=== PATIENT | male | born 1990 ===

== ENCOUNTER 2016-07-01 14:11 | Emergency (ER) | payer BC, MEDICAID ==
--- NOTE | 2016-07-01 14:51 | UC ---
Hand/Wrist HPI - HPI Summary HPI Summary: The patient comes in today for: 1. Left middle, ring, and little finger. Onset: Yesterday. Palliative/provocative: Moving and pressure on the affected fingers makes it worse. Quality: Ache at rest, and sharp with movement. Region: Left 3rd, 4th and 5th fingers. Severity:6/10 Time: Constant. Associated symptoms: Event: He was handling a single cable which branches out to four cables dropping a palate from the second story to the first. The four cables started to wind and twist around each other with the palate spinning. This started to pinch the above fingers. He states that he was able to remove this affected fingers from this pinching event Medications: Excedrin "two every four hours" taking 4 doses in the past day. Cold compresses. * - History Of Current Complaint Chief Complaint: UCUpperExtremity Stated Complaint: LEFT HAND PAIN Time Seen by Provider: 07/01/16 14:43 Hx Obtained From: Patient - Allergies/Home Medications Allergies/Adverse Reactions: Allergies Allergy/AdvReac Type Severity Reaction Status Date / Time Amoxicillin Allergy Rash Verified 07/01/16 14:42 Sulfa Antibiotics Allergy Rash Verified 07/01/16 14:42 avoids opiates as of 07/03/16 Allergy Unknown Uncoded 07/01/16 14:42 Reaction Details PMH/Surg Hx/FS Hx/Imm Hx Previously Healthy: Yes Endocrine History Of: Denies: Diabetes, Thyroid Disease, Hyperthyroidism, Hypothyroidism, Dyslipidemia Cardiovascular History Of: Reports: Cardiac Disorders - murmur Denies: Hypertension, Pacemaker/ICD, Myocardial Infarction, Congestive Heart Failure, Atrial Fibrillation, Deep Vein Thrombosis, Bleeding Disorders Respiratory History Of: Denies: COPD, Asthma, Bronchitis, Pneumonia, Pulmonary Embolism GI/ History Of: Denies: Gastroesophageal Reflux, Ulcer, Gastrointestinal Bleed, Gall Bladder Disease, Kidney Stones, Diverticulitis, Renal Disease, Urosepsis Neurological History Of: Denies: TIA, CVA, Dementia, Seizures, Migraine Psychological History Of: Denies: Anxiety, Depression, Bipolar Disorder, Schizophrenia, Post Traumatic Stress Disorder Cancer History Of: Denies: Lung Cancer, Colorectal Cancer, Breast Cancer, Prostate Cancer, Cervical Cancer Other History Of: Negative For: HIV, Hepatitis B, Hepatitis C, Anticoagulant Therapy - Surgical History Surgical History: None - Family History Known Family History: Positive: Cardiac Disease, Hypertension, Diabetes - Social History Occupation: Employed Full-time Alcohol Use: None Substance Use Type: Excessive Caffeine, Marijuana Substance Use Comment - Amount & Last Used: 0piate heroin 07/01/16 AM Smoking Status (MU): Heavy Every Day Tobacco Smoker Review of Systems Constitutional: Negative Skin: Negative Eyes: Negative ENT: Negative Respiratory: Negative Cardiovascular: Negative Gastrointestinal: Negative Genitourinary: Negative Musculoskeletal: Arthralgia, Myalgia All Other Systems Reviewed And Are Negative: Yes Physical Exam Triage Information Reviewed: Yes Appearance: Well-Appearing, No Pain Distress, Well-Nourished Vital Signs: Initial Vital Signs Temp 99.4 F 07/01/16 14:32 Pulse 77 07/01/16 14:32 Resp 20 07/01/16 14:32 BP 127/66 07/01/16 14:32 Eyes: Positive: Conjunctiva Clear. Negative: Discharge ENT: Positive: Hearing grossly normal. Negative: Pharyngeal erythema, Nasal congestion, Nasal drainage, TM bulging, TM dull, TM red, Tonsillar swelling, Tonsillar exudate Dental: Negative: Gross Decay/Caries @, Dental Fracture @ Neck: Positive: Supple, Nontender, No Lymphadenopathy. Negative: Nuchal Rigidity Respiratory: Positive: Lungs clear, No respiratory distress, No accessory muscle use. Negative: Crackles, Wheezing Cardiovascular: Positive: RRR, No Murmur - In the sitting position Abdomen Description: Positive: Nontender, No Organomegaly, Soft. Negative: Distended, Guarding Musculoskeletal: Positive: No Edema, Other: - Left hand: He has no ecchymosis or edema of the affected fingers. He is able in isolation move the distal phalanx and the middle phalanx of all three affected fingers, but with pain. Neurological: Positive: Alert Psychological: Positive: Normal Response To Family, Age Appropriate Behavior, Consolable Skin: Negative: rashes, breakdown Diagnostics - Radiology No standard instances Xray Interpretation: No Acute Changes Radiology Interpretation Completed By: Radiologist Hand/Wrist Course/Dx - Course Course Of Treatment: Patient given naproxen. - Differential Dx/Diagnosis Provider Diagnoses: Contusion of the left 5th, 4th, and 3rd fingers. Discharge - Discharge Plan Condition: Stable Disposition: HOME Patient Education Materials: Contusion in Adults (ED) Referrals: Saturnino Christiansen MD [Primary Care Provider] - (Please rest the hands and only engage activity as tolerated. If you are not back to normal an not able to go back to work this Friday, please be seen again.)
[2016-07-01] MEDS ORDERED: Naproxen TAB* 250 MG PO ONE (14:59)
--- NOTE | 2016-07-01 15:29 | RAD ---
INDICATION: Left hand injury COMPARISON: None TECHNIQUE: AP, lateral, and oblique views were obtained. FINDINGS: The bony structures, joint spaces, and soft tissues are normal for age. IMPRESSION: NEGATIVE EXAMINATION.
== END 2016-07-01 15:54 | disposition home or self-care (01) ==
LOC: UCCORT 14:11
DX: S60.052A Contusion of left little finger without damage to nail, initial encounter (principal); S60.042A Contusion of left ring finger without damage to nail, initial encounter; S60.032A Contusion of left middle finger without damage to nail, initial encounter; W23.0XXA Caught, crushed, jammed, or pinched between moving objects, initial encounter; Y93.9 Activity, unspecified; Y99.9 Unspecified external cause status; Z88.1 Allergy status to other antibiotic agents; Z88.5 Allergy status to narcotic agent; Z88.2 Allergy status to sulfonamides
CPT/HCPCS: 99202; A9270-GY; G0463

== ENCOUNTER 2016-07-30 09:22 | Emergency (ER) | payer SELFPAY ==
[2016-07-30 09:38] VITALS: BP 131/83
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
== END 2016-07-30 10:08 | disposition home or self-care (01) ==
LOC: UCCORT 09:22
DX: S40.012A Contusion of left shoulder, initial encounter (principal); S60.211A Contusion of right wrist, initial encounter; V89.2XXA Person injured in unspecified motor-vehicle accident, traffic, initial encounter
CPT/HCPCS: 99212; G0463

== ENCOUNTER 2017-03-03 21:47 | Emergency (ER) | payer SELFPAY ==
--- NOTE | 2017-03-03 21:51 | UC ---
Eye Complaint HPI - HPI Summary HPI Summary: 26 year old male presents with complains of left eye redness/discharge. - History of Current Complaint Stated Complaint: EYE COMPLAINT Time Seen by Provider: 03/03/17 21:49 Hx Obtained From: Patient Onset/Duration: Sudden Onset Timing: Constant Severity Initially: Moderate Severity Currently: Moderate Pain Scale Used: 0-10 Numeric - 5 Aggravating Factor(s): Light Alleviating Factor(s): Darkness Associated Signs And Symptoms: Positive: Photophobia, Drainage (Clear) - Allergies/Home Medications Allergies/Adverse Reactions: Allergies Allergy/AdvReac Type Severity Reaction Status Date / Time Amoxicillin Allergy Rash Verified 03/03/17 21:56 Sulfa Antibiotics Allergy Rash Verified 03/03/17 21:56 avoids opiates as of 07/03/16 Allergy Unknown Uncoded 03/03/17 21:56 Reaction Details Home Medications: Home Medications [id number] [Excedrin Extra Strength] 2 tab PO BID PRN [History Confirmed 03/03/17] PMH/Surg Hx/FS Hx/Imm Hx Previously Healthy: Yes Other History Of: Negative For: HIV, Hepatitis B, Hepatitis C, Anticoagulant Therapy - Surgical History Surgical History: None - Family History Known Family History: Positive: Cardiac Disease, Hypertension, Diabetes - Social History Alcohol Use: None Substance Use Type: Excessive Caffeine, Marijuana Substance Use Comment - Amount & Last Used: 0piate heroin 07/01/16 AM Smoking Status (MU): Heavy Every Day Tobacco Smoker - Immunization History Most Recent Tetanus Shot: Unknown Review of Systems Constitutional: Negative Skin: Negative Eyes: Drainage, Eye Redness, Photophobia, Other - left eye ENT: Negative Respiratory: Negative Cardiovascular: Negative Gastrointestinal: Negative Genitourinary: Negative Motor: Negative Neurovascular: Negative Musculoskeletal: Negative Neurological: Negative Psychological: Negative All Other Systems Reviewed And Are Negative: Yes Physical Exam Triage Information Reviewed: Yes Appearance: Well-Appearing Vital Signs Reviewed: Yes Eyes: Positive: Conjunctiva Inflamed, Discharge ENT Exam: Normal Dental Exam: Normal Neck exam: Normal Neck: Positive: 1 Respiratory Exam: Normal Cardiovascular Exam: Normal Abdominal Exam: Normal Musculoskeletal Exam: Normal Neurological Exam: Normal Psychological Exam: Normal Skin Exam: Normal Eye Complaint Course/Dx - Differential Dx/Diagnosis Provider Diagnoses: left eye conjunctivitis. left eye redness. left eye drainage. left corneal abrasion Discharge - Discharge Plan Condition: Stable Disposition: HOME Patient Education Materials: Conjunctivitis (ED), Corneal Abrasion (ED) Referrals: Kristian Stevens MD [Medical Doctor] - Saturnino Christiansen MD [Primary Care Provider] -
[2017-03-03 21:56] VITALS: BP 131/88
[2017-03-03] MEDS ORDERED: Ciprofloxacin 0.3% OPTH.SOL* 2.5 ML BTL LEFT EYE ONE (21:57)
[2017-03-03] MEDS ORDERED: Ciprofloxacin 0.3% OPTH.SOL* 2.5 ML BTL ONE (21:59)
[2017-03-03] MEDS ORDERED: Tetracaine 0.5% OPTH.SOL 4 ML* 1 DROP BTL LEFT EYE ONE (22:00)
[2017-03-03] MEDS ORDERED: Fluorescein Sodium TOPICAL* 1 MG TEST OPHTHALMIC ONE (22:03)
[2017-03-03] MEDS ORDERED: Fluorescein Sodium TOPICAL* 1 MG TEST ONE (22:04)
[2017-03-03] MEDS ORDERED: Tetan/Diph/Pertus SYR(Tdap)* 0.5 ML SYR(BOOSTRIX) use SYR IM ONE (22:10)
== END 2017-03-03 22:19 | disposition home or self-care (01) ==
LOC: UCCORT 21:47
DX: H10.9 Unspecified conjunctivitis (principal); S05.02XA Injury of conjunctiva and corneal abrasion without foreign body, left eye, initial encounter; F17.200 Nicotine dependence, unspecified, uncomplicated; Z88.1 Allergy status to other antibiotic agents; Z88.2 Allergy status to sulfonamides; X58.XXXA Exposure to other specified factors, initial encounter; Y92.9 Unspecified place or not applicable
CPT/HCPCS: 99212; A9270-GY; G0463